=== PATIENT | female | born 1940 | race Hispanic/Latino ===

== ENCOUNTER → 2018-08-19 | Outpatient (CLI) | payer OTHER | END | disposition home or self-care (01) | LOC: OIH 10:24 | PROVIDERS: ATTEND Family Medicine | DX: M47.896 Other spondylosis, lumbar region (principal); M85.88 Other specified disorders of bone density and structure, other site | CPT/HCPCS: 72100 ==

== ENCOUNTER → 2019-02-12 | Outpatient (CLI) | payer OTHER | END | disposition home or self-care (01) | LOC: RAH 09:42 | PROVIDERS: ATTEND Internal Medicine Gastroenterology | DX: K22.4 Dyskinesia of esophagus (principal); K44.9 Diaphragmatic hernia without obstruction or gangrene | CPT/HCPCS: 74240 ==

== ENCOUNTER → 2019-03-04 | Outpatient (CLI) | payer OTHER ==
--- NOTE | 2019-03-04 10:04 | NUR ---
MBSS COMPLETED. -S/S OF ASPIRATION. RECOMMEND MECHANICAL SOFT/CHOPPED, THIN LIQUIDS; PILLS WHOLE WITH LIQUIDS. PATIENT INFORMATION: Pt IS A 78 YEAR OLD FEMALE REFERRED FOR AN MBSS SECONDARY TO COMPLAINS OF DIFFICULT SWALLOWING. Pt REPORTS THAT SHE HAS DIFFICULTY AND FEELS LIKE SHE CHOKES WITH MEATS AND SOLIDS (INCONSISTENTLY). Pt COOPERATIVE DURING THE EVALUATION. Pt HAS A PAST MEDICAL HISTORY SIGNIFICANT FOR LOWER BACK PAIN, HEMATURIA, CARDIOMEGALY, SPONDYLOSIS (LUMBAR), ANGIA PECTORIS NEC/NOS, DYSKINESIA OF ESOPHAGUS, DIAPHRAGMATIC HERNIA, DYSPHAGIA, AND MITRAL VALVE DISORDER. PT REPORTS A RECENT SURGERY TO EYES SECONDARY TO PTOSIS. MBSS INTERPRETATION: Pt PRESENTS WITH MILD-MODERATE OROPHARYNGEAL DYSPHAGIA CAUSED BY DECREASED ORAL MOTOR COORDINATION, DECREASED TONGUE BASE RETRACTION, DECREASED PRESSURE GENERATION WITHIN THE PHARYNX EVIDENCED BY DECREASED ROTARY MOTION DURING MASTICATION, POOLING IN VALLECULAE, AND PYRIFORM SINUS, DECREASED PHARYNGEAL STRIPPING, WITH NO PENETRATION OR ASPIRATION AT THE TIME OF THE MBSS. TRIALS: 1. TSP PUREED: POOLING IN VALLECULAE AND PYRIFORM SINUS 2. TSP PUDDING: POOLING IN VALLECULAE AND PYRIFORM SINUS 3. CUP SIP THIN LIQUIDS: NO ASPIRATION (CLEARING RESIDUE FROM PYRIFORM SINUS) 4. TSP MIXED TEXTURES: GOOD 5. CUP SIP THIN LIQUIDS: GOOD RECOMMENDATIONS: 1. MECHANICAL SOFT/CHOPPED, THIN LIQUIDS; PILLS WHOLE WITH LIQUIDS. 2. COMPENSATORY STRATEGIES: *SEATED AT 90 DEGREES *ALTERNATE BITES AND SIPS *SMALL BITES AND SIPS 3. SKILLED SPEECH THERAPY TARGETING SWALLOWING IS RECOMMENDED 3-5XWK. G-CODES SWALLOWING: [id number] Addendum: 03/05/19 at 1031 by MALIK LINDSEY Amended: Links added.
== END | disposition home or self-care (01) ==
LOC: RAH 09:45
PROVIDERS: ATTEND Internal Medicine Gastroenterology
DX: R13.10 Dysphagia, unspecified (principal); R93.3 Abnormal findings on diagnostic imaging of other parts of digestive tract; K44.9 Diaphragmatic hernia without obstruction or gangrene; I10 Essential (primary) hypertension
CPT/HCPCS: G8996; G8997; G8998; 74230; 92611

== ENCOUNTER → 2021-04-27 | Outpatient (CLI) | payer OTHER ==
[~2021-04-27] MED LIST: REGADENOSON 0.4 MG/5 ML PF SYG IVP SCH
== END | disposition home or self-care (01) ==
LOC: RAH 08:17
PROVIDERS: ATTEND Family Medicine
DX: I45.10 Unspecified right bundle-branch block (principal); R94.31 Abnormal electrocardiogram [ECG] [EKG]; R06.9 Unspecified abnormalities of breathing; R06.00 Dyspnea, unspecified
CPT/HCPCS: 78452; 93017; 96374; A9500 ×2; J2785

== ENCOUNTER → 2023-01-13 | Outpatient (CLI) | payer OTHER | END | disposition home or self-care (01) | LOC: RAH 13:22 | PROVIDERS: ATTEND Family Medicine | DX: Z12.31 Encounter for screening mammogram for malignant neoplasm of breast (principal) | CPT/HCPCS: 77067 ==

== ENCOUNTER → 2023-03-11 | Outpatient (CLI) | payer OTHER | END | disposition home or self-care (01) | LOC: SHCH 12:30 | PROVIDERS: ATTEND Student in an Organized Health Care Education/Training Program | DX: R94.31 Abnormal electrocardiogram [ECG] [EKG] (principal); I10 Essential (primary) hypertension; E78.5 Hyperlipidemia, unspecified | CPT/HCPCS: 93306 ==

== ENCOUNTER 2023-12-26 10:20 | Emergency (ER) | payer OTHER ==
[~2023-12-26] VITALS: Ht 157.5 cm; Wt 44.9 kg
[2023-12-26 11:24] LABS: BASOPHILS # (AUTO) 0.04 K/uL (0.00-0.20); BASOPHILS % (AUTO) 0.4 % (0.0-5.0); EOSINOPHILS # (AUTO) 0.02 K/uL (0.00-0.70); EOSINOPHILS % (AUTO) 0.2 % (0.0-8.0); HEMATOCRIT 33.7 % (36-48); IMMATURE GRANULOCYTE ABSOLUTE 0.05 K/uL (0-1); LYMPHOCYTES # (AUTO) 1.1 K/uL (1.0-4.8); LYMPHOCYTES % (AUTO) 11.8 % (21.0-51.0); MEAN CORPUSCULAR HEMOGLOBIN 31.9 pg (27.0-33.0); MEAN CORPUSCULAR HGB CONC 33.8 g/dL (32.0-36.0); MEAN CORPUSCULAR VOLUME 94.4 fL (79-99); MONOCYTES # (AUTO) 0.5 K/uL (0.1-1.0); MONOCYTES % (AUTO) 4.8 % (3.0-13.0); NEUTROPHILS # (AUTO) 7.9 K/uL (1.8-7.7); NEUTROPHILS % (AUTO) 82.3 % (40.0-77.0); PLATELET COUNT (AUTO) 331 K/uL (130-400); RED BLOOD CELL COUNT(AUTO) 3.57 MIL/uL (4.00-5.50); RED CELL DISTRIBUTION WIDTH 13.6 % (11.0-15.5); WHITE BLOOD COUNT (AUTO) 9.6 K/uL (4.8-10.8)
[2023-12-26 11:33] LABS: CREATININE 0.6 mg/dL (0.5-1.5); POTASSIUM 3.5 mmol/L (3.5-5.1)
[2023-12-26 11:37] LABS: ALBUMIN 3.7 g/dL (3.5-5.0); BILIRUBIN,TOTAL 0.5 mg/dL (0.2-1.0); MAGNESIUM 1.7 mg/dL (1.80-2.40); TOTAL PROTEIN, SERUM 7.7 g/dL (6.0-8.3)
[2023-12-26] MEDS: 0.9%NACL 1000ML 1,000 ML IV ONE (11:58)
[2023-12-26 11:59] LABS: APPEARANCE,URINE CLEAR (CLEAR); BILIRUBIN,URINE NEGATIVE (NEGATIVE); COLOR,URINE COLORLESS (YELLOW); GLUCOSE, URINE (UA) NEGATIVE (NEGATIVE); KETONES,URINE NEGATIVE (NEGATIVE); LEUKOCYTE ESTERASE ,URINE 250 Leu/uL (NEGATIVE); NITRATE,URINE NEGATIVE (NEGATIVE); PH,URINE 7.5 (5.0-8.0); PROTEIN,URINE 10 mg/dL (NEGATIVE); UROBILINOGEN,URINE 0.2 mg/dL (0.2-1.0)
[2023-12-26 12:00] LABS: ADD UA MICROSCOPIC YES
[2023-12-26 12:02] LABS: BACTERIA,URINE RARE /HPF (None Seen); SQUAMOUS EPITHELIAL CELL,UR RARE /HPF (0-2)
[2023-12-26 13:53] VITALS: BP 172/74; PULSE 85; RESP 16; O2SAT 98
[2023-12-26] MEDS ORDERED: MAGN300C PO (14:46)
== END 2023-12-26 15:35 | disposition home or self-care (01) ==
LOC: EDH 10:20
DX: D53.9 Nutritional anemia, unspecified (principal); E83.42 Hypomagnesemia; I10 Essential (primary) hypertension; R79.89 Other specified abnormal findings of blood chemistry; E78.00 Pure hypercholesterolemia, unspecified; Z98.890 Other specified postprocedural states
CPT/HCPCS: 99284; 96361; 96360; 70450; 83735; 84484 ×2; 80053; 83880; 85025; 87088; 81001; 36415; 93005 ×2; J7030

== ENCOUNTER → 2024-01-27 | Outpatient (CLI) | payer OTHER ==
[~2024-01-27] MED LIST changes: +MAGN300C PO; -REGADENOSON 0.4 MG/5 ML PF SYG IVP SCH
== END | disposition home or self-care (01) ==
LOC: RAH 11:17
PROVIDERS: ATTEND Family Medicine
DX: M81.0 Age-related osteoporosis without current pathological fracture (principal)
CPT/HCPCS: 77080

== ENCOUNTER 2024-03-20 15:43 | Emergency (ER) | payer OTHER ==
[~2024-03-20] VITALS: Ht 152.4 cm; Wt 44.9 kg
[2024-03-20 16:29] LABS: HEMATOCRIT 33.3 % (36-48); MEAN CORPUSCULAR HEMOGLOBIN 31.4 pg (27.0-33.0); MEAN CORPUSCULAR HGB CONC 32.7 g/dL (32.0-36.0); PLATELET COUNT (AUTO) 340 K/uL (130-400); RED BLOOD CELL COUNT(AUTO) 3.47 MIL/uL (4.00-5.50); RED CELL DISTRIBUTION WIDTH 13.9 % (11.0-15.5); WHITE BLOOD COUNT (AUTO) 8.3 K/uL (4.8-10.8)
[2024-03-20 16:40] LABS: CREATININE 0.6 mg/dL (0.5-1.0); POTASSIUM 3.9 mmol/L (3.5-5.1)
[2024-03-20 16:43] LABS: INR <= 0.93 (0.85-1.15); PROTHROMBIN TIME 10.9 SEC (9.6-11.6)
[2024-03-20 16:44] LABS: PARTIAL THROMBOPLASTIN TIME 26.8 SEC (26.3-35.5)
[2024-03-20 16:51] LABS: ALBUMIN 3.4 g/dL (3.5-5.0); BILIRUBIN,TOTAL 0.3 mg/dL (0.2-1.0); TOTAL PROTEIN, SERUM 7.1 g/dL (6.0-8.3)
[2024-03-20 17:09] LABS: BAND NEUTROPHILS % (MANUAL) 1 % (0-2); BASOPHILS % (MANUAL) 1 % (0-2); EOSINOPHILS % (MANUAL) 4 % (1-6); LYMPHOCYTES % (MANUAL) 21 % (22-44); MAN.DIFF COMMENT-IMPRESSION MANUAL DIFFERENTIAL; MONOCYTES % (MANUAL) 9 % (2-9); SEGMENTED NEUTROPHILS % 64 % (40-70); TOTAL CELLS COUNTED 100
[2024-03-20 17:10] LABS: PLATELET MORPHOLOGY COMMENT ADEQUATE; WBC MORPHOLOGY NORMAL
[2024-03-20 17:11] VITALS: BP 144/45; PULSE 70; RESP 18; O2SAT 100
== END 2024-03-20 19:03 | disposition home or self-care (01) ==
LOC: EDH 15:43
DX: R53.1 Weakness (principal); I10 Essential (primary) hypertension; E78.00 Pure hypercholesterolemia, unspecified; D69.6 Thrombocytopenia, unspecified; Z98.890 Other specified postprocedural states; Z79.899 Other long term (current) drug therapy
CPT/HCPCS: 36415; 71045; 80053; 84484; 85025; 85610; 85730; 93005

== ENCOUNTER 2024-09-05 01:19 | Observation (INO) | payer OTHER ==
[~2024-09-05] VITALS: Ht 157.5 cm; Wt 44.4 kg
[2024-09-05 02:24] LABS: BASOPHILS # (AUTO) 0.04 K/uL (0.00-0.20); BASOPHILS % (AUTO) 0.4 % (0.0-5.0); EOSINOPHILS # (AUTO) 0.14 K/uL (0.00-0.70); EOSINOPHILS % (AUTO) 1.4 % (0.0-8.0); HEMATOCRIT 33.3 % (36-48); IMMATURE GRANULOCYTE ABSOLUTE 0.03 K/uL (0-1); LYMPHOCYTES # (AUTO) 2.1 K/uL (1.0-4.8); LYMPHOCYTES % (AUTO) 21.2 % (21.0-51.0); MEAN CORPUSCULAR HEMOGLOBIN 31.7 pg (27.0-33.0); MEAN CORPUSCULAR HGB CONC 33.6 g/dL (32.0-36.0); MEAN CORPUSCULAR VOLUME 94.3 fL (79-99); MONOCYTES # (AUTO) 0.9 K/uL (0.1-1.0); MONOCYTES % (AUTO) 8.8 % (3.0-13.0); NEUTROPHILS # (AUTO) 6.6 K/uL (1.8-7.7); NEUTROPHILS % (AUTO) 67.9 % (40.0-77.0); PLATELET COUNT (AUTO) 303 K/uL (130-400); RED BLOOD CELL COUNT(AUTO) 3.53 MIL/uL (4.00-5.50); RED CELL DISTRIBUTION WIDTH 13.7 % (11.0-15.5); WHITE BLOOD COUNT (AUTO) 9.7 K/uL (4.8-10.8)
[2024-09-05 02:33] LABS: CREATININE 0.7 mg/dL (0.5-1.0); POTASSIUM 3.5 mmol/L (3.5-5.1)
[2024-09-05] MEDS: morPHINE 2 MG SYG IVP ONE (02:54)
[2024-09-05] MEDS: diazePAM 5 MG/ML 2 ML SYG IVP ONE (02:54)
[2024-09-05] MEDS: 0.9% NACL 500ML IV.SOLN 500 ML IV ONE (04:30)
[2024-09-05] MEDS ORDERED: MIDAZOLAM HCL 1 MG/ML 5ML VIAL IVP ONE (09:30)
[2024-09-05] MEDS: MIDAZOLAM HCL 5 MG/ML 2ML VIAL IV ONE ×2 (09:48→11:22)
[2024-09-05] MEDS: ketaMINE 50MG/ML SYRINGE 50 MG/ML DISP.SYRIN IV ONE (09:48)
[2024-09-05] MEDS: ketaMINE 50MG/ML SYRINGE 50 MG/ML DISP.SYRIN ONE (11:22)
[2024-09-05] MEDS ORDERED: acetaMINOPHEN 325 MG TAB PO PRN ×2 (12:00)
[2024-09-05] MEDS ORDERED: polyETHYLene GLYCol 3350 17 GM POWD.PACK PO PRN (12:00)
[2024-09-05] MEDS ORDERED: guaiFENesin SUGAR-FREE 100 MG/5 ML UDCUP PO PRN (12:00)
[2024-09-05] MEDS ORDERED: ARTIFICAL TEARS SOL 15 ML OP PRN (12:00)
[2024-09-05] MEDS ORDERED: hydrALAZine 25MG TABLET PO PRN (12:00)
[2024-09-05] MEDS ORDERED: hydroMORPHone 0.5 MG SYG (0.5MG/0.5ML) IVP PRN (12:00)
[2024-09-05] MEDS ORDERED: ondanSETRON 4MG INJ IV PRN (12:00)
[2024-09-05] MEDS ORDERED: BENZOCAINE/MENTH/CETYLPYRD CL 1 EACH LOZENGE MM PRN (12:00)
[2024-09-05 13:30] VITALS: BP 154/46; PULSE 78; RESP 18; TEMP 97.9; O2SAT 100
[2024-09-05] MEDS: INSULIN humuLIN R 100 UNIT/ML 3ML SQ SCH (16:30)
[2024-09-05] MEDS ORDERED: FAMOTIDINE 20MG TAB PO SCH (21:00)
== END 2024-09-05 17:55 | disposition home or self-care (01) ==
LOC: EDH 01:19 → EDHIP 11:52 → 4DH 12:35
PROVIDERS: ADMIT Internal Medicine Critical Care Medicine; ATTEND Internal Medicine Critical Care Medicine
DX: S03.00XA Dislocation of jaw, unspecified side, initial encounter (principal); I16.0 Hypertensive urgency; N39.0 Urinary tract infection, site not specified; R53.1 Weakness; E78.00 Pure hypercholesterolemia, unspecified; X58.XXXA Exposure to other specified factors, initial encounter; Y93.89 Activity, other specified; Y92.89 Other specified places as the place of occurrence of the external cause; Y99.8 Other external cause status; Z79.899 Other long term (current) drug therapy; Z98.890 Other specified postprocedural states; Z98.51 Tubal ligation status
CPT/HCPCS: 70486 ×2; 96374; 96375; 99285; 80048; 85025; 82948; 36415; 70330; 99152; 21480; G0378 ×6; J7040; J2270; J3360; J2250; J3490